=== PATIENT | female | born 1990 | race Two or more races ===

== ENCOUNTER 2021-03-01 23:21 | Emergency (ER) | payer SELFPAY ==
[~2021-03-01] VITALS: Ht 152.4 cm; Wt 53.1 kg
[2021-03-02 01:40] LABS: MICROSCOPIC AUTO
--- NOTE | 2021-03-02 02:30 | NUR ---
pt walked back to room at this time. pt changed into gown, Patient is resting comfortably in bed. Bed in lowest, rails engaged, call light on lap. at bs, provided warm blankets for comfort, pt IV established and labs drawn and sent, came into ed today due to right sided flank pain x3 months and nausea and vomitting for awhile. pt medicated per oct, SIRI.
[2021-03-02] MEDS ORDERED: ONDANSETRON 2MG/ML, 2ML ONE (02:34)
[2021-03-02] MEDS ORDERED: MORPHINE SULFATE 4 MG/ML, 1ML ONE (02:34)
[2021-03-02] MEDS ORDERED: DIPHENHYDRAMINE 50 MG/ML, 1ML ONE (02:58)
[2021-03-02] MEDS ORDERED: MORPHINE SULFATE 4 MG/ML, 1ML IVPush PRN (03:00)
[2021-03-02] MEDS ORDERED: SODIUM CHLORIDE 0.9% 1,000 ML IV ONE (03:00)
[2021-03-02] MEDS ORDERED: ONDANSETRON 2MG/ML, 2ML IVPush ONE (03:00)
[2021-03-02] MEDS ORDERED: SODIUM CHLORIDE 0.9% 1,000ML IVBOLUS ONE (03:00)
[2021-03-02 03:01] LABS: BASOPHILS % (AUTO) 1 % (0-1); EOSINOPHILS % (AUTO) 1 % (1-7); LYMPHOCYTES % (AUTO) 30 % (22-44); MEAN CORPUSCULAR HEMOGLOBIN 30.7 pg (27.0-34.8); MEAN CORPUSCULAR HGB CONC 34.8 g/dL (32.4-35.8); MEAN PLATELET VOLUME 8.7 fL (7.4-10.4); MONOCYTES % (AUTO) 6 % (2-9); NEUTROPHILS % (AUTO) 63 % (42-75); PLATELET COUNT 283 x10^3/uL (130-400); RED BLOOD COUNT 4.83 x10^6/uL (3.82-5.3); RED CELL DISTRIBUTION WIDTH 12.8 % (9.6-15.2)
--- NOTE | 2021-03-02 03:05 | NUR ---
pt medicated per oct then began feeling as though she couldnt talk and trembling, RN rechecked pt, gross neuro intact, ERP Moris aware and re-evaled pt, verbal medication order received. medication administered. pt resting on gurney, at , nad, no other changes in condition, wctm.
[2021-03-02 03:12] LABS: ALANINE AMINOTRANSFERASE 20 U/L (12-78); ALBUMIN 3.4 g/dL (3.4-5.0); ANION GAP 6 mmol/L (5-15); CALCIUM 8.6 mg/dL (8.5-10.1); CHLORIDE 105 mmol/L (98-107); CREATININE 0.56 mg/dL (0.55-1.02)
[2021-03-02 03:17] LABS: ALKALINE PHOSPHATASE 61 U/L (45-117); BILIRUBIN,TOTAL 0.4 mg/dL (0.2-1.0); TOTAL PROTEIN 7.7 g/dL (6.4-8.2)
[2021-03-02] MEDS ORDERED: DIPHENHYDRAMINE 50 MG/ML, 1ML IVPush ONE (03:30)
--- NOTE | 2021-03-02 04:04 | NUR ---
pt up to restroom, ambulatory with a smooth and steady gait, nad, vss, back to [facility], resting comfortably, appears more relaxed, at bs, wctm. Bed in lowest, rails engaged, call light on lap.
[2021-03-02 04:41] VITALS: BP 108/67
--- NOTE | 2021-03-02 04:59 | NUR ---
Patient/Caregiver given discharge instructions and they have confirmed that they understand the instructions. Patient ambulatory with steady gait. NAD, all questions answered appropriately, denies additional needs at this time. No personal belongings left in room after discharge.
[2021-03-02] MEDS ORDERED: KETOROLAC 30 MG/1 ML IVPush ONE (05:00)
== END 2021-03-02 05:01 | disposition home or self-care (01) ==
LOC: ED 23:50
DX: N83.291 Other ovarian cyst, right side (principal)
CPT/HCPCS: 36415; 74176; 80053; 81001; 83690; 84703; 85025; 96361; 96374; 96375; 99284; J1200; J2405; J7030